=== PATIENT | male | born 1935 | race Caucasian/White ===

== ENCOUNTER → 2016-12-04 | Outpatient (CLI) | payer MEDICARE, OTHER ==
--- NOTE | 2016-12-04 23:26 | HKNOTE ---
DATE OF SERVICE: 12/04/2016 SUBJECTIVE: An 81-year-old male presents today for followup regarding right knee pain. The patient was last seen on 08/22/2016 with cortisone injection provided to the right knee. It has been recommended by Dr. Downing that the patient is eligible candidate for total knee arthroplasty given [id number] deformity, primarily to the medial compartment of the knee, but patient states that he would like to avoid surgery at all costs. The patient states that he gets ongoing relief with cortisone injections every couple of months or so. The patient last received injection on 08/22/2016 and states that he had at least 60% relief that is ongoing. Pain is gradually starting to return and becoming achy, especially with weightbearing. Denies any falls since he was last seen. VITAL SIGNS: Blood pressure 167/83, temperature 97.8 degrees, pulse rate is 52 , respiratory rate is 12, height is 5 feet 10 inches. PHYSICAL EXAMINATION: The patient is alert, oriented, and in no acute distress. Limping gait on exam with mild antalgic complaints. The patient is able to flex the knee up to 120 degrees and extend with about 5 degree lag from full extension at 0 degrees. Tenderness to palpation primarily to the medial compartment. On inspection, there is also noted abnormality/bony prominence from arthritic knee along the medial compartment. Patellofemoral crepitus as well as crepitus is palpated to the medial compartment on exam with range of motion. 5/5 strength to surrounding muscle groups. INJECTION: Cortisone injection to the right knee performed today with 2 mL of Kenalog and 6 mL of lidocaine 2%. Area was sterilized with Betadine prior to injection. A 22-gauge needle used to inject the knee without complication. The patient observed for 5 minutes and then later discharged. ASSESSMENT AND PLAN: 1. Continue anti-inflammatories as needed for pain. 2. It was discussed today the benefits of total knee arthroplasty, but patient respectfully declines and wishes to avoid surgery at all costs. 3. The patient was advised to follow up as needed. The patient may follow up in another 3 to 4 months should repeat cortisone injection be necessary and the patient states understanding and compliance. Dictated By: KAREN SANCHEZ for KYM DOWNING MD, KP/BARI Conf#: [id number] [facility]#: [id number] MTDD
== END | disposition home or self-care (01) ==
LOC: HKI 13:22
DX: M25.561 Pain in right knee (principal)
CPT/HCPCS: 20610; G0463; J3301

== ENCOUNTER → 2017-03-25 | Outpatient (CLI) | payer MEDICARE, OTHER ==
--- NOTE | 2017-03-25 15:52 | PN ---
Date/Time of Note Date/Time of Note DATE: 03/25/17 TIME: 15:49 Outpatient Progress Note Chief Complaint Right knee cortisone injection HPI 82-year-old male presents today for right knee cortisone injection. Patient has [id number] deformity to the medial compartment of the knee. Continues to respectfully declined discussion in regards to total knee arthroplasty. Patient had last cortisone injection in December 2016 in which she states that he received significant relief for about a month and a half. Continues with ongoing pain to the knee that is constant. Pain on average, is a 7-8/10 on the pain scale. No falls since he was last seen. Review of Systems Const: No Fever, no chills, no Fatigue, normal appetite, no diaphoresis. Resp: No SOB, no wheezing, no chest pain. CV: No chest pain, no palpitaions, no DUKES. Physical Exam Blood pressure is 120/75, temperature is 98.1, pulse is 65, respiratory rate is 12, height is 5 foot 10 inches, weight is 196 pounds. Right knee: Notable crepitus primarily to the medial compartment of the knee. Tenderness to palpation that is generalized throughout the knee. Patient is able to flex up to 100. Full extension. Normal sensory examination to light touch. Assessment/Plan * Joint aspiration performed today. 110 cc of fluid aspirated from the right knee. Prior joint aspiration area was cleaned with Betadine swab. 3 cc of Marcaine used to numb the area prior joint aspiration. Immediately after joint aspiration was performed 3 cc of Kenalog along with 6 cc of lidocaine 2% was injected into the knee. Patient was observed for 5-10 minutes with no complications. Patient was then discharged. * Continue anti-inflammatories as needed for arthritis. Remain active to reduce stiffness to the knee. * Patient was advised to follow-up as needed but if he needs repeat injection, follow-up in another 3-[address] Marsh agrees with plan. KAREN HILLIARD PA-C March 25, 2017 15:52
== END | disposition home or self-care (01) ==
LOC: HKI 13:23
DX: M25.561 Pain in right knee (principal)
CPT/HCPCS: 20610; G0463

== ENCOUNTER → 2017-06-24 | Outpatient (CLI) | payer MEDICARE, OTHER ==
--- NOTE | 2017-06-24 14:16 | PN ---
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 Patient was last seen on 03/25/2017 for right knee injection. Patient reports minimal relief to the right knee after cortisone injection but would like to trial again. Knee replacement has been discussed with patient on several visits the patient is adamant as he does not wish to pursue surgical intervention in regards to total knee arthroplasty. Denies any complications with last injection. Review of Systems Const: No Fever, no chills, no Fatigue, normal appetite, no diaphoresis. Resp: No SOB, no wheezing, no chest pain. CV: No chest pain, no palpitaions, no DUKES. Physical Exam Temperature is 98, blood pressure is 140/74, pulse is 66, respiratory rate is 12, height is 5 feet 10 inches, weight is 196 pounds General Appearance: well-developed, well-nourished, in no acute distress. Right knee: Gait is antalgic with slight limp. Patient is able to flex up to 100. Patient is able to achieve full active extension. Crepitus with range of motion. Tenderness to palpation primarily to the medial compartment. Normal sensory examination to light touch. 5/5 strength on resistance. Assessment/Plan Problems: (1) Osteoarthritis of right knee * Patient has provided consent. Area was cleaned with Betadine swab. 16- gauge needle and 60 cc syringe was then used for joint aspiration due to significant knee effusion. 110 cc of fluid was able to be aspirated followed by a mixture of 2 cc of 40 mg per mill Kenalog and 6 cc of 1% lidocaine cortisone injection into the knee. Band-Aid was placed after injection. Patient tolerated procedure well. * Patient continues to decline discussion in regards to total knee arthroplasty and we will respect patient's wishes. * Patient will follow-up as needed for repeat evaluation. Anti-inflammatories encouraged for osteoarthritis. Remaining active was also encouraged to prevent stiffness to the joint. KAREN HILLIARD PA-C Jun 24, 2017 14:16
== END | disposition home or self-care (01) ==
LOC: HKI 13:22
DX: M17.11 Unilateral primary osteoarthritis, right knee (principal)
CPT/HCPCS: 20610

== ENCOUNTER → 2017-11-25 | Outpatient (CLI) | END | disposition home or self-care (01) ==

== ENCOUNTER → 2018-02-23 | Outpatient (CLI) | END | disposition home or self-care (01) ==

== ENCOUNTER → 2018-08-14 | Outpatient (CLI) | END | disposition home or self-care (01) ==

== ENCOUNTER → 2019-03-03 | Outpatient (CLI) | payer MEDICARE, OTHER ==
--- NOTE | 2019-03-03 15:00 | CONS ---
Assessment/Plan Assessment/Plan Hospital Course (Demo Recall) 84-year-old male with end-stage osteoarthritis of the right knee. He has had much success in the past with steroid injections. He would like to continue with those today. In addition he does have significant laxity of the MCL secondary to his severe varus deformity. A medial truck loader and unloader brace would benefit the patient especially because he is seeking continued nonoperative treatment. Plan: Aspiration and steroid injection right knee Medial truck loader and unloader brace for right knee Ice Low impact activities Follow-up 3 to 6 months Assessment/Plan (Daily) Right knee aspiration procedure: Risks and benefits aspiration reviewed with patient. The risks include infection, failure, pain, swelling, nerve/tendon/ligament damage. The patient verbalized understanding and verbal consent was obtained prior to procedure. The right knee was prepped in a sterile fashion with alcohol and betadine the site of aspiration was confirmed. Lateral approach was used. The skin and capsule was anesthetized with 3mL 1% lidocaine careful not to inject intra- articularly. The right knee was aspirated. 110 mL of blood-tinged synovial fluid was aspirated. The right knee was then injected with 2mL 1% lidocaine, 2mL 0.25% bupivacaine, 40mg Depo-Medrol. Injection flowed freely. Good hemostas is was achieved and no complications noted. The patient tolerated the procedure well. Limit activity and ice for 24-48 hours Consultation Date/Type/Reason Admit Date/Time Date of Consultation: March 03, 2019 Reason for Consultation Right knee pain Date/Time of Note DATE: 03/03/19 TIME: 14:41 Hx of Present Illness This is a 84-year-old male with a chief complaint of right knee pain. The pain began approximately years ago. He had an open knee surgery many years ago. He was a previous patient of Dr. Marsh's. He has had numerous steroid injections to the right knee which provided significant relief. His last steroid injection was in August 2018. However this one did not provide much relief. The patients pain is in the medial aspect of the right knee. Pain is not radiating to the lower leg. The pain is rated as a 68/10. Patient denies complaints of numbness or tingling. The pain is exacerbated by climbing stairs and ambulation. He has been using ice as needed. Duration: Years Injury: No Walking tolerance: Limited. Difficult to stand for long peers of time Limp: At times Support:cane at times Swelling: Yes Crepitation: Yes Instability: Yes Stairs: Difficult Physical Therapy: Not recently Injections: Multiple steroid injections. Last one August 2018 NSAIDs: Contraindicated. History of cardiac issues. On warfarin. Prior surgery: Yes. Open knee procedure many years ago. Back pain: Yes Hip pain: No Risk of AVN : No Patient denies fever, chills, shortness of breath, chest pain, nausea/vomiting, constipation, diarrhea, numbness, and tingling. Past Medical History Cardiac arrhythmia versus possible valve issue Lumbar radiculopathy LLE Past Surgical History Previous many years ago Family History Significant Family History: no pertinent family hx Social History Alcohol Use: occasionally Smoking Status: Smoker,current status unk Drug Use: none Exam/Review of Systems Exam Vitals Weight: 185 pounds Height: 5 feet 10 inches Temperature: 98.4 Heart Rate: 50 Blood Pressure: 145/76 Respiratory Rate: 14 Exam General: Alert, oriented x3. No Acute Distress. Heart: Regular rate and rhythm. Lungs: No respiratory distress. No accessory muscle use. Musculoskeletal: Right Knee This is a well developed male who is alert, oriented times three and in no apparent distress. Skin is intact over the right knee as well as the lower extremity with no abrasions, lacerations, or ulcerations. Observation of the patient's gait reveals an antalgic gait with Large varus thrust. Frontal plane alignment is varus. There is 3+ effusion. There are 2 well-healed medial and posterior medial incisions of the knee. There is pain on palpation of medial joint line. The patient demonstrates grinding anteriorly with ROM. Range of motion: 3 extension to approximately 120 degrees of flexion. Collateral ligament testing reveals instability with valgus stress with correction of varus deformity. Otherwise there is no other instability with varus stress at 0 and 30 degrees of flexion. Negative Abdulkadir's and negative posterior drawer. Neurovascularly intact with 5/5 EHL/tibialis anterior/gastroc. Sensation intact to light touch in a sural, saphenous, deep peroneal, superficial peroneal, medial and lateral plantar nerve distribution. Palpable, symmetric dorsalis pedis and posterior tibial pulses in both lower extremities. Hip examination normal. Imaging Imaging The patient received a standard set of films today that were personally reviewed. Imaging included a standing bilateral knee AP, PA flexion, merchant views and a dedicated lateral of the affected knee: There is varus alignment of the knee. There is complete loss of joint space medial compartment with moderate loss of joint space lateral compartment. There is osteophyte formation. There is subchondral sclerosis. There are subchondral cysts. Degenerative changes are most severe in the medial compartment(s) JUNIOR DINERO MD March 03, 2019 15:00
--- NOTE | 2019-03-05 12:04 | RADRPT ---
PROCEDURE: XR knees CLINICAL INDICATION: bilateral knee pain. TECHNIQUE: 4 weightbearing views of the bilateral knees were obtained. COMPARISON: [facility] 08/03/2014 FINDINGS: Right knee: There is no acute fracture dislocation. Osseous structures are intact. There is severe o steoarthritic changes of the knee, most notable at the medial tibio-femoral compartment. There is cho ndrocalcinosis of the lateral tibio-femoral compartment. There is a small knee joint effusion. Vascul ar calcifications are seen about the knee. Left knee: There is no acute fracture dislocation. Osseous structures are intact. There is severe os teoarthritic changes of the knee, most notable at the medial tibio-femoral compartment. There is eduardo drocalcinosis of the lateral tibio-femoral compartment. There is a small knee joint effusion. Vascula r calcifications are seen about the knee. IMPRESSION: 1. Severe bilateral knee joint osteoarthritis, most notable at the medial tibio-femoral compartments . 2. Bilateral knee chondrocalcinosis. 3. Small bilateral knee joint effusions. 4. Atherosclerosis. RPTAT: DD Physician Luzma Date Time Electronically viewed and signed by Physician Luzma on 03/05/2019 12:04 /
== END | disposition home or self-care (01) ==
LOC: HKI 13:44
PROVIDERS: ATTEND Orthopaedic Surgery Adult Reconstructive Orthopaedic Surgery
DX: M17.11 Unilateral primary osteoarthritis, right knee (principal)
CPT/HCPCS: 20610; 73564; G0463